=== PATIENT | female | born 1980 | race American Indian/Alaskan Native ===

== ENCOUNTER 2019-08-28 10:42 | Emergency (ER) | payer MEDICAID, OTHER ==
[2019-08-28] MEDS ORDERED: IBUPROFEN 600 MG TAB PO ONE ×3 (11:22→11:36)
[2019-08-28 11:36] VITALS: BP 118/70
--- NOTE | 2019-08-28 17:42 | XRay Report ---
CHEST 2 VIEWS INDICATION / CLINICAL INFORMATION: MAIN: COUGH AND FEVER; Pt. c/o body aches, fever, BUCKLEY, stomach ache X 6 DAYS. COMPARISON: 02/16/2015 FINDINGS: SUPPORT DEVICES: None. HEART / MEDIASTINUM: No significant abnormality. LUNGS / PLEURA: No significant pulmonary or pleural abnormality. No pneumothorax. ADDITIONAL FINDINGS: No significant additional findings. IMPRESSION: No significant abnormality or change from prior examination dated 02/16/2015 Signer Name: Liam Alas MD FACR Signed: 08/28/2019 5:37 PM Workstation Name: [id number]
--- NOTE | 2019-08-28 18:06 | Emergency Department Report ---
- General Chief Complaint: Upper Respiratory Infection Stated Complaint: FLU Time Seen by Provider: 08/28/19 17:11 Source: patient Mode of arrival: Ambulatory Limitations: No Limitations - History of Present Illness MD Complaint: fever, cough, sore throat, rhinorrhea, nasal congestion -: days(s) (5) Severity: moderate Quality: dull Consistency: constant Improves With: nothing Worsens With: nothing Associated Symptoms: chills, myalgias, rhinorrhea, nasal congestion, cough. denies: shortness of breath - Related Data Home Medications Medication Instructions Recorded Confirmed Last Taken Ergocalciferol [Vitamin D2] 1 cap PO QWEEK 03/18/16 03/18/16 Unknown Omeprazole 40 mg PO BID 03/18/16 03/18/16 Unknown amLODIPine [Norvasc] 10 mg PO DAILY 03/18/16 03/18/16 Unknown Previous Rx's Medication Instructions Recorded Last Taken Type Albuterol INH(or & Nicu Only) 2 puff IH QID PRN #1 inhalation 08/28/19 Unknown Rx [ProAir HFA Inhaler] Azithromycin [Zithromax] 500 mg PO QDAY #3 tablet 08/28/19 Unknown Rx guaiFENesin/CODEINE [Robitussin AC] 5 ml PO Q6H PRN #120 ml 08/28/19 Unknown Rx predniSONE [Deltasone] 50 mg PO QDAY #5 tab 08/28/19 Unknown Rx Allergies Allergy/AdvReac Type Severity Reaction Status Date / Time No Known Allergies Allergy Verified 04/25/15 11:46 ED Review of Systems ROS: Stated complaint: FLU Other details as noted in HPI Comment: All other systems reviewed and negative ED Past Medical Hx - Past Medical History Previous Medical History?: Yes Hx GERD: Yes Hx Asthma: Yes (as a child) - Surgical History Past Surgical History?: Yes Additional Surgical History: tubal ligation - Social History Smoking Status: Never Smoker Substance Use Type: Alcohol - Medications Home Medications: Home Medications Medication Instructions Recorded Confirmed Last Taken Type Ergocalciferol [Vitamin D2] 1 cap PO QWEEK 03/18/16 03/18/16 Unknown History Omeprazole 40 mg PO BID 03/18/16 03/18/16 Unknown History amLODIPine [Norvasc] 10 mg PO DAILY 03/18/16 03/18/16 Unknown History Albuterol INH(or & Nicu Only) 2 puff IH QID PRN #1 inhalation 08/28/19 Unknown Rx [ProAir HFA Inhaler] Azithromycin [Zithromax] 500 mg PO QDAY #3 tablet 08/28/19 Unknown Rx guaiFENesin/CODEINE [Robitussin AC] 5 ml PO Q6H PRN #120 ml 08/28/19 Unknown Rx predniSONE [Deltasone] 50 mg PO QDAY #5 tab 08/28/19 Unknown Rx ED Physical Exam - General Limitations: No Limitations General appearance: alert, in no apparent distress - Head Head exam: Present: atraumatic, normocephalic - Eye Eye exam: Present: normal appearance - ENT ENT exam: Present: mucous membranes moist, other (Nasal congestion bilaterally with clear drainage. Pharynx is erythematous) - Neck Neck exam: Present: normal inspection - Respiratory Respiratory exam: Present: normal lung sounds bilaterally, rhonchi. Absent: respiratory distress, chest wall tenderness, accessory muscle use, decreased breath sounds - Cardiovascular Cardiovascular Exam: Present: regular rate, normal rhythm. Absent: systolic murmur, diastolic murmur, rubs, gallop - GI/Abdominal GI/Abdominal exam: Present: soft, normal bowel sounds. Absent: distended, tenderness, guarding, hyperactive bowel sounds, hypoactive bowel sounds - Extremities Exam Extremities exam: Present: normal inspection, full ROM, normal capillary refill - Back Exam Back exam: Present: normal inspection. Absent: CVA tenderness (R), CVA tenderness (L) - Neurological Exam Neurological exam: Present: alert, oriented X3, CN II-XII intact, normal gait - Psychiatric Psychiatric exam: Present: normal affect, normal mood - Skin Skin exam: Present: warm, dry, intact, normal color. Absent: rash, cyanosis, diaphoretic, urticaria ED Course Vital Signs 08/28/19 11:35 Temperature 102.4 F H Pulse Rate 106 H Respiratory 16 Rate Blood Pressure 118/70 [Right] O2 Sat by Pulse 97 Oximetry ED Medical Decision Making - Radiology Data Radiology results: report reviewed No significant change compared to examination in January 2015 - Medical Decision Making This 39-year-old female patient presents with symptoms suspicious for likely viral upper respiratory tract infection. Differential includes bacterial pneumonia, sinusitis, allergic rhinitis, influenza. Do not suspect underlying Cardiopulmonary process. I considered but think unlikely dangerous cause of this patient symptoms to include acute coronary syndrome, CHF or COPD exacerbations, pneumonia, pneumothorax. Patient is nontoxic appearing and not in need of emergent medical intervention. Low suspicion for COVID-19 due to the patient not traveling to a pandemic area now not working in a high risk area for contact with those who may be sick. To her knowledge she is not coming contact with anyone who has tested positive. Although she does have a fever cough and some shortness of breath she does not set satisfy the other parameters. Plan: Reassurance, reassessment, [id number] medications, discharge with PCP follow-up Critical care attestation.: If time is entered above; I have spent that time in minutes in the direct care of this critically ill patient, excluding procedure time. ED Disposition Clinical Impression: Viral syndrome Disposition: DC-01 TO HOME OR SELFCARE Is pt being admited?: No Does the pt Need Aspirin: No Condition: Stable Instructions: Fever in Adults (ED), Cold Symptoms (ED) Prescriptions: predniSONE [Deltasone] 50 mg PO QDAY #5 tab Albuterol INH(or & Nicu Only) [ProAir HFA Inhaler] 2 puff IH QID PRN #1 inhalation PRN Reason: Shortness Of Breath guaiFENesin/CODEINE [Robitussin AC] 5 ml PO Q6H PRN #120 ml PRN Reason: Cough Azithromycin [Zithromax] 500 mg PO QDAY #3 tablet Referrals: PRIMARY CARE, [Primary Care Provider] - 3-5 Days [facility] [Provider Group] - 3-5 Days
== END 2019-08-28 18:18 | disposition home or self-care (01) ==
LOC: ED 10:42
DX: B34.9 Viral infection, unspecified (principal); K21.9 Gastro-esophageal reflux disease without esophagitis; J45.909 Unspecified asthma, uncomplicated; Z98.51 Tubal ligation status; Z79.899 Other long term (current) drug therapy
CPT/HCPCS: 71046; 99283

== ENCOUNTER 2019-12-18 09:00 | Emergency (ER) | payer OTHER ==
--- NOTE | 2019-12-18 10:48 | Event Note ---
ED Screening Note ED Screening Note: cough/fever/chills since Tue rx norvasc PMH HTN asthma PSH tubal no cig pos etoh no known exposure to covid no one in home ill works at home This initial assessment/diagnostic orders/clinical plan/treatment(s) is/are subject to change based on patients health status, clinical progression and re-assessment by fellow clinical providers in the ED. Further treatment and workup at subsequent clinical providers discretion. Patient/guardian urged not to elope from the ED as their condition may be serious if not clinically assessed and managed. Initial orders include: ACC ro asthma ae/pna/covid
--- NOTE | 2019-12-18 11:30 | XRay Report ---
CHEST 2 VIEWS INDICATION / CLINICAL INFORMATION: cough/asthma/chills. COMPARISON: 08/28/2019 FINDINGS: SUPPORT DEVICES: None. HEART / MEDIASTINUM: No significant abnormality. LUNGS / PLEURA: No significant pulmonary or pleural abnormality. No pneumothorax. ADDITIONAL FINDINGS: No significant additional findings. IMPRESSION: No significant abnormality or change from 08/28/2019 Signer Name: Liam Alas MD FACAyesha Signed: 12/18/2019 11:26 AM Workstation Name: [id number]
[2019-12-18] MEDS ORDERED: ALBUTEROL 2.5 MG/3 ML NEBU IH ONE (12:46)
--- NOTE | 2019-12-18 12:48 | Emergency Department Report ---
Minor Respiratory - HPI Chief Complaint: Upper Respiratory Infection Stated Complaint: COUGH,CHEST PAIN Time Seen by Provider: 12/18/19 10:47 Duration: 3 Days Pain Location: Chest Severity: mild Minor Respiratory: Yes Sore Throat, Yes Able to Tolerate Fluids, Yes Cough, No Rhinorrhea, No Ear Pain, No Sick Contacts, No Hemoptysis, No Chest Pain, No Shortness of Breath, No Fever Other History: 39 YO AA COMES TO ER WITH URI S/S INCLUDING DRY COUGH. NO SPUTUM. CHILLS. HX ASTHMA. XRAY TO RO PNA ED Review of Systems ROS: Stated complaint: COUGH,CHEST PAIN Other details as noted in HPI Comment: All other systems reviewed and negative ED Past Medical Hx - Past Medical History Previous Medical History?: Yes Hx GERD: Yes Hx Asthma: Yes (as a child) - Surgical History Past Surgical History?: Yes Additional Surgical History: tubal ligation - Family History Family history: no significant - Social History Smoking Status: Never Smoker Substance Use Type: Alcohol - Medications Home Medications: Home Medications Medication Instructions Recorded Confirmed Last Taken Type Ergocalciferol [Vitamin D2] 1 cap PO QWEEK 03/18/16 03/18/16 Unknown History Omeprazole 40 mg PO BID 03/18/16 03/18/16 Unknown History amLODIPine [Norvasc] 10 mg PO DAILY 03/18/16 03/18/16 Unknown History Albuterol INH(or & Nicu Only) 2 puff IH QID PRN #1 inhalation 08/28/19 Unknown Rx [ProAir HFA Inhaler] Azithromycin [Zithromax] 500 mg PO QDAY #3 tablet 08/28/19 Unknown Rx guaiFENesin/CODEINE [Robitussin AC] 5 ml PO Q6H PRN #120 ml 08/28/19 Unknown Rx predniSONE [Deltasone] 50 mg PO QDAY #5 tab 08/28/19 Unknown Rx Albuterol INH(or & Nicu Only) 2 puff IH QID PRN #1 inhalation 12/18/19 Unknown Rx [ProAir HFA Inhaler] Azithromycin [Zithromax Z-JULIUS] 250 mg PO DAILY #6 tablet 12/18/19 Unknown Rx Fluticasone [Flonase] 1 spray NS QDAY #1 bottle 12/18/19 Unknown Rx predniSONE [Deltasone] 20 mg PO DAILY #5 tablet 12/18/19 Unknown Rx Minor Respiratory Exam - Exam General: Vital signs noted. No distress. Alert and acting appropriately. HEENT: Yes Moist Mucous Membranes, No Pharyngeal Erythema, No Pharyngeal Exudates, No Rhinorrhea, No Conjuctival Injection, No Frontal Tenderness, No Maxillary Tenderness Ear: Neither TM Bulge, Neither TM Erythema, Neither EAC Pain, Neither EAC Discharge Neck: Yes Supple, No Adenopathy Lungs: Yes Good Air Exchange, Yes Wheezes, No Ronchi, No Stridor, No Cough, No Labored Respirations, No Retractions, No Use of Accessory Muscles, No Other Abnormal Lung Sounds Heart: Yes Regular, No Murmur Abdomen: Yes Normal Bowel Sounds, No Tenderness, No Peritoneal Signs Skin: No Rash, No Edema Neurologic: Alert and oriented, no deficits. Musculoskeletal: Unremarkable. ED Course Vital Signs 12/18/19 09:07 Temperature 98.8 F Pulse Rate 97 H Respiratory 16 Rate Blood Pressure 132/94 O2 Sat by Pulse 98 Oximetry ED Medical Decision Making - Radiology Data Radiology results: report reviewed, image reviewed NAP - Medical Decision Making XRAY W NO CONSOLIDATION WHEEZING ON EXAM DUONEB HIGH RISK FOR COVID DUE TO ASTHMA OXYGYEN WNL NO FEVER OR CHILLS XRAY NO INFILTRATE DC HOME WITH DC POC AND PCP FOLLOW UP SHE VERBALIZES UNDERSTANDING OF DC POC Vital Signs 12/18/19 09:07 Temperature 98.8 F Pulse Rate 97 H Respiratory 16 Rate Blood Pressure 132/94 O2 Sat by Pulse 98 Oximetry - Differential Diagnosis URI Critical care attestation.: If time is entered above; I have spent that time in minutes in the direct care of this critically ill patient, excluding procedure time. ED Disposition Clinical Impression: URI (upper respiratory infection), Asthma, acute Disposition: DC-01 TO HOME OR SELFCARE Is pt being admited?: No Does the pt Need Aspirin: No Condition: Stable Instructions: Upper Respiratory Infection (ED), Asthma (ED) Additional Instructions: STAY WELL HYDRATED MEDS ORDERED TODAY FOLLOW UP WITH PCP IN 3 DAYS FOR RECHECK Prescriptions: predniSONE [Deltasone] 20 mg PO DAILY #5 tablet Fluticasone [Flonase] 1 spray NS QDAY #1 bottle Albuterol INH(or & Nicu Only) [ProAir HFA Inhaler] 2 puff IH QID PRN #1 inhalation PRN Reason: Shortness Of Breath Azithromycin [Zithromax Z-JULIUS] 250 mg PO DAILY #6 tablet Referrals: INES MERIDA MD [Staff Physician] - 3-5 Days Forms: Work/School Release Form(ED) Time of Disposition: 12:46
[2019-12-18 13:46] VITALS: BP 134/78
== END 2019-12-18 13:36 | disposition home or self-care (01) ==
LOC: ED 09:00
DX: J45.909 Unspecified asthma, uncomplicated (principal); J06.9 Acute upper respiratory infection, unspecified; K21.9 Gastro-esophageal reflux disease without esophagitis; Z98.51 Tubal ligation status; Z79.899 Other long term (current) drug therapy
CPT/HCPCS: 71046; 94640; 94644; 99283